=== PATIENT | female | born 1970 | race African-American/Black ===

== ENCOUNTER 2019-10-09 00:41 | Emergency (ER) | payer MEDICARE, MEDICAID ==
[~2019-10-09] VITALS: Ht 175.3 cm; Wt 78.3 kg
[~2019-10-09 00:41] MED LIST: ACAR100T2 PO; BUPR75TA8 PO; CARV6.2548 PO; CYCL5TAB PO; FURO40TA5 PO; GABA-529 PO; HYDR-4001 PO; LORA1TAB PO
[2019-10-09] MEDS ORDERED: ONDANSETRON HCL 4MG/2ML INJ IV STA (00:48)
[2019-10-09] MEDS ORDERED: ALTEPLASE IV NR (01:35)
[2019-10-09] MEDS ORDERED: CONTAINER EMPTY IV NR (01:35)
[2019-10-09] MEDS ORDERED: ALTEPLASE 100MG/VIAL IV NR (01:35)
[2019-10-09] MEDS ORDERED: ALTEPLASE 100MG/VIAL IV STA (01:36)
[2019-10-09] MEDS ORDERED: ALTEPLASE IV STA (01:36)
[2019-10-09] MEDS ORDERED: *NO ASPIRIN X 24 HOURS XX SCH (02:00)
[2019-10-09 02:04] LABS: CHLORIDE 108 mEq/L (98-107); HEMATOCRIT. 36.9 % (36.0-48.0); HEMOGLOBIN. 11.2 g/dL (12.0-16.0); MEAN CORPUSCULAR HEMOGLOBIN 23.3 pg (28.0-32.0); MEAN CORPUSCULAR VOLUME 76.4 fL (81.0-99.0); MEAN PLATELET VOLUME 8.6 fl (7.4-10.4); PLATELET 411 x1000/uL (130-400); RED BLOOD CELL COUNT 4.83 mill/uL (4.2-5.4); RED CELL DISTRIBUTION WIDTH 22.1 % (11.6-14.6)
[2019-10-09 02:06] LABS: HCG SCREEN NEGATIVE
[2019-10-09 02:07] LABS: INR 1.2
[2019-10-09 02:08] LABS: ETHANOL BLOOD < 10 mg/dL
[2019-10-09 02:11] LABS: LDL CHOLESTEROL 84 mg/dL (5-100)
[2019-10-09 04:04] VITALS: BP 112/68
[2019-10-09] MEDS ORDERED: IOHEXOL-350 100 ML BOTTLE ONE (07:22)
[2019-10-09 07:35] LABS: PLATELET ESTIMATE SLIGHTLY INCREASED
== END 2019-10-09 04:00 | disposition short-term general hospital (02) ==
LOC: ER 00:41 → CANBEDREQ 13:11
DX: I63.9 Cerebral infarction, unspecified (principal); G40.909 Epilepsy, unspecified, not intractable, without status epilepticus; I10 Essential (primary) hypertension; I50.9 Heart failure, unspecified
CPT/HCPCS: 36415; 70450; 70496; 70498; 71045; 80053; 80320; 82962; 83721; 84703; 85025; 85610; 93005; 99291; J2997; Q9967; J7060; G0480

== ENCOUNTER 2020-04-15 16:03 | Inpatient (IN) | payer MEDICARE, MEDICAID ==
[~2020-04-15] VITALS: Ht 170.2 cm; Wt 94.8 kg
[2020-04-15 19:03] LABS: BASOPHILS % 0.6 % (0.0-2.0); EOSINOPHILS % 4.6 % (0.0-5.0); HEMATOCRIT. 32.1 % (36.0-48.0); HEMOGLOBIN. 10.6 g/dL (12.0-16.0); MEAN CORPUSCULAR HEMOGLOBIN 29.1 pg (28.0-32.0); MEAN CORPUSCULAR VOLUME 88.3 fL (81.0-99.0); MEAN PLATELET VOLUME 9.9 fl (7.4-10.4); NEUTROPHILS % 72.8 % (40.0-76.0); PLATELET 222 x1000/uL (130-400); RED BLOOD CELL COUNT 3.63 mill/uL (4.2-5.4); RED CELL DISTRIBUTION WIDTH 14.2 % (11.6-14.6)
[2020-04-15 19:06] LABS: CHLORIDE 113 mEq/L (98-107)
[2020-04-15 19:22] LABS: HCG SCREEN NEGATIVE
[2020-04-15] MEDS ORDERED: MORPHINE SULFATE 4 MG/ML CPJ (NOT FOR IM USE) IV ONE (20:45)
[2020-04-15] MEDS ORDERED: CLONIDINE 0.1MG TABLET PO PRN (21:30)
[2020-04-15] MEDS ORDERED: ONDANSETRON HCL 4MG/2ML INJ IV PRN (21:30)
[2020-04-15] MEDS ORDERED: DOCUSATE SODIUM 100MG CAPSULE PO PRN (21:30)
[2020-04-15] MEDS ORDERED: ACETAMINOPHEN 325MG TABLET PO PRN (21:30)
[2020-04-15] MEDS: SODIUM CHLORIDE 0.9% 1,000 ML IV SCH (21:40)
[2020-04-15 23:00] VITALS: BP 117/55
[2020-04-15] MEDS: HYDROCODONE/ACETAMINOPHEN 5/325MG TABLET PO PRN (23:05)
[2020-04-16] VITALS: BP 117/55
[2020-04-16 04:00] VITALS: BP 112/60
[2020-04-16] MEDS: HYDROCODONE/ACETAMINOPHEN 5/325MG TABLET PO PRN ×4 (05:22→22:30)
[2020-04-16 06:03] LABS: BASOPHILS % 0.4 % (0.0-2.0); EOSINOPHILS % 3.8 % (0.0-5.0); HEMATOCRIT. 31.1 % (36.0-48.0); HEMOGLOBIN. 10.1 g/dL (12.0-16.0); LYMPHOCYTES % 14.8 % (20.0-50.0); MEAN CORPUSCULAR HEMOGLOBIN 28.5 pg (28.0-32.0); MEAN PLATELET VOLUME 9.5 fl (7.4-10.4); MONOCYTES % 8.8 % (2.0-8.0); NEUTROPHILS % 72.2 % (40.0-76.0); PLATELET 214 x1000/uL (130-400); RED BLOOD CELL COUNT 3.54 mill/uL (4.2-5.4)
[2020-04-16] MEDS: LORAZEPAM 2MG/ML CPJ IV PRN ×3 (06:23→21:30)
[2020-04-16 06:40] LABS: CHLORIDE 113 mEq/L (98-107)
[2020-04-16 06:49] LABS: LDL CHOLESTEROL 69 mg/dL (5-100)
[2020-04-16 06:50] LABS: CREATINE KINASE 195 IU/L (26-192)
[2020-04-16 06:51] LABS: HDL CHOLESTEROL 55 mg/dL (40-59)
[2020-04-16 08:00] VITALS: BP 114/67
[2020-04-16] MEDS ORDERED: ENOXAPARIN 30MG/0.3ML SYR SUBCUT SCH (09:00)
[2020-04-16] MEDS: GABAPENTIN 100MG CAPSULE PO SCH (10:45)
[2020-04-16 12:00] VITALS: BP 124/66
[2020-04-16] MEDS: SODIUM CHLORIDE 0.9% 1,000 ML IV SCH (14:07)
[2020-04-16 16:00] VITALS: BP 126/45
[2020-04-16 20:00] VITALS: BP 104/62
[2020-04-16] MEDS ORDERED: BUPROPION HCL 75MG TABLET PO SCH (21:00)
[2020-04-17 00:07] VITALS: BP 110/63
[2020-04-17] MEDS: HYDROCODONE/ACETAMINOPHEN 5/325MG TABLET PO PRN (02:44)
[2020-04-17 04:00] VITALS: BP 136/70
[2020-04-17] MEDS: LORAZEPAM 2MG/ML CPJ IV PRN (04:05)
[2020-04-17] MEDS: SODIUM CHLORIDE 0.9% 1,000 ML IV SCH (06:54)
[2020-04-17 08:00] VITALS: BP 129/80
[2020-04-17] MEDS: GABAPENTIN 100MG CAPSULE PO SCH (08:34)
[2020-04-17] MEDS ORDERED: ENOXAPARIN 40MG/0.4ML SYR SUBCUT SCH (09:00)
[2020-04-17 12:00] VITALS: BP 126/65
[2020-04-17] MEDS ORDERED: TRAM50TA3 MT (12:31)
[2020-04-17] MEDS ORDERED: COR6 PO (12:31)
[2020-04-17 13:14] VITALS: BP 126/75
== END 2020-04-17 15:00 | disposition home or self-care (01) | DRG 73 ==
LOC: ER 16:03 → 6WST 18:51 → EDBEDREQSVC 18:54 → EDBEDREQ 18:54 → EDBEDREQTM 19:01 → EDBEDREQ 19:01 → ENRESERV 21:11
PROVIDERS: ADMIT Hospitalist; ATTEND Hospitalist
DX: G90.8 Other disorders of autonomic nervous system (principal); N17.0 Acute kidney failure with tubular necrosis; I50.43 Acute on chronic combined systolic (congestive) and diastolic (congestive) heart failure; I13.0 Hypertensive heart and chronic kidney disease with heart failure and stage 1 through stage 4 chronic kidney disease, or unspecified chronic kidney disease; I69.354 Hemiplegia and hemiparesis following cerebral infarction affecting left non-dominant side; N17.9 Acute kidney failure, unspecified; R55 Syncope and collapse; G40.909 Epilepsy, unspecified, not intractable, without status epilepticus; N18.9 Chronic kidney disease, unspecified; R00.1 Bradycardia, unspecified; I50.9 Heart failure, unspecified; Z79.899 Other long term (current) drug therapy
CPT/HCPCS: 36415; 71045; 80053; 80061; 82550; 83605; 83880; 84484; 84703; 85025; 93005; 93306; 93970; 96374; 97162; 99285; J1650; J2060; J2270; J2405